=== PATIENT | female | born 1985 | race African-American/Black ===

== ENCOUNTER 2018-08-15 14:16 | Emergency (ER) | payer OTHER ==
[~2018-08-15] VITALS: Ht 170.2 cm; Wt 150.0 kg
[2018-08-15 16:13] LABS: CLARITY URINE CLEAR (CLEAR); COLOR URINE YELLOW (YELLOW); KETONES URINE NEGATIVE (NEGATIVE); LEUKOCYTE ESTERASE URINE NEGATIVE (NEGATIVE); NITRITE URINE NEGATIVE (NEGATIVE); OCCULT BLOOD URINE NEGATIVE (NEGATIVE); PROTEIN URINE NEGATIVE (NEGATIVE); SPECIFIC GRAVITY URINE 1.019 (1.005-1.030); UROBILINOGEN URINE 0.2 E.U./dL (0.2-1.0)
[2018-08-15 17:24] LABS: HCG SCREEN NEGATIVE
[2018-08-15 17:46] VITALS: BP 124/42
== END 2018-08-15 17:46 | disposition home or self-care (01) ==
LOC: ER 14:16
DX: Z32.02 Encounter for pregnancy test, result negative (principal)
CPT/HCPCS: 81025; 84703; 99283

== ENCOUNTER 2018-10-12 20:11 | Emergency (ER) | payer OTHER ==
[~2018-10-12] VITALS: Ht 170.2 cm; Wt 165.9 kg
[2018-10-12 23:10] LABS: BASOPHILS % 0.4 % (0.0-2.0); HEMATOCRIT. 34.6 % (36.0-48.0); HEMOGLOBIN. 11.5 g/dL (12.0-16.0); MEAN CORPUSCULAR VOLUME 86.8 fL (81.0-99.0); MEAN PLATELET VOLUME 6.6 fl (7.4-10.4); MONOCYTES % 3.7 % (2.0-8.0); NEUTROPHILS % 60.9 % (40.0-76.0); PLATELET 344 x1000/uL (130-400); RED BLOOD CELL COUNT 3.98 mill/uL (4.2-5.4)
[2018-10-12 23:11] LABS: CHLORIDE 109 mEq/L (98-107)
[2018-10-13 01:00] VITALS: BP 125/67
== END 2018-10-13 01:21 | disposition home or self-care (01) ==
LOC: ER 20:11
DX: R60.0 Localized edema (principal); M79.605 Pain in left leg; M79.604 Pain in right leg
CPT/HCPCS: 36415; 71045; 93970; 99284

== ENCOUNTER 2023-08-13 18:20 | Emergency (ER) | payer OTHER ==
[~2023-08-13] VITALS: Ht 167.6 cm; Wt 150.0 kg
[2023-08-13 18:24] VITALS: O2SAT 99
[2023-08-13] MEDS ORDERED: FUROSEMIDE 40MG/4ML VIAL IVP ONE (19:00)
[2023-08-13 20:14] LABS: BASOPHILS % 0.2 % (0.0-2.0); EOSINOPHILS % 2.4 % (0.0-5.0); HEMATOCRIT. 33.7 % (36.0-48.0); HEMOGLOBIN. 11.3 g/dL (12.0-16.0); LYMPHOCYTES % 27.1 % (20.0-50.0); MEAN CORPUSCULAR HEMOGLOBIN 27.9 pg (28.0-32.0); MEAN CORPUSCULAR HGB CONC 33.5 g/dL (31.0-37.0); MEAN CORPUSCULAR VOLUME 83.2 fL (81.0-99.0); MEAN PLATELET VOLUME 7.2 fl (7.4-10.4); MONOCYTES % 6.1 % (2.0-8.0); NEUTROPHILS % 64.2 % (40.0-76.0); PLATELET 306 x1000/uL (130-400); RED BLOOD CELL COUNT 4.05 mill/uL (4.2-5.4); RED CELL DISTRIBUTION WIDTH 14.2 % (11.6-14.6); WHITE BLOOD COUNT 6.4 x1000/uL (4.5-11.0)
[2023-08-13 20:27] LABS: D-DIMER 0.6 mg/L FEU (<0.50); INR 1.1; PARTIAL THROMBOPLASTIN TIME 26.4 sec (23.4-31.0); PROTHROMBIN TIME 11.8 sec (9.6-11.0)
[2023-08-13 20:28] LABS: HCG SCREEN NEGATIVE
[2023-08-13 20:29] LABS: CHLORIDE 104 mEq/L (98-107); POTASSIUM 3.8 mEq/L (3.5-5.1); SODIUM 140 mEq/L (136-145)
[2023-08-13 20:30] LABS: CALCIUM 9.2 mg/dL (8.7-10.4); CARBON DIOXIDE 26 mEq/L (21-32)
[2023-08-13 20:35] LABS: CREATININE 0.4 mg/dL (0.6-1.0); GLUCOSE 103 mg/dL (70-105); TROPONIN I HIGH SENSITIVITY 4 ng/L (3.0-34); UREA NITROGEN BLOOD 10 mg/dL (9-23)
[2023-08-13] MEDS: FUROSEMIDE 40MG/4ML VIAL IVP NR (21:00)
[2023-08-13 21:45] LABS: ALANINE AMINOTRANSFERASE 15 IU/L (10-49); ALBUMIN 3.3 g/dL (3.2-4.8); ASPARTATE AMINOTRANSFERASE 18 IU/L (<34); BILIRUBIN DIRECT 0.1 mg/dL (<=3.0); BILIRUBIN TOTAL 0.3 mg/dL (0.1-1.0); PROTEIN TOTAL 6.5 g/dL (6.0-8.3)
[2023-08-14] MEDS ORDERED: POTA-202 MT (00:41)
[2023-08-14] MEDS ORDERED: FURO-152 MT (00:41)
[2023-08-14 00:47] VITALS: BP 126/70; PULSE 90; RESP 22; TEMP 98
[2023-08-14] MEDS ORDERED: IOHEXOL-350 100 ML BOTTLE ONE (03:41)
== END 2023-08-14 01:20 | disposition home or self-care (01) ==
LOC: ER 18:20
DX: R60.0 Localized edema (principal); E03.9 Hypothyroidism, unspecified; E11.9 Type 2 diabetes mellitus without complications
CPT/HCPCS: 99285; 93970; 96374; 71275; 71045; 80076; 80048; 84703; 83880; 85025; 85379; 85610; 85730; 84484; 36415; 93005; J1940; Q9967

== ENCOUNTER 2024-05-10 14:58 | Emergency (ER) | payer OTHER ==
[~2024-05-10] VITALS: Ht 170.2 cm; Wt 161.0 kg
[~2024-05-10 14:58] MED LIST: FURO-152 MT; METH-372 MT; POTA-202 MT; PROP20TA19 MT
[2024-05-10 15:01] VITALS: TEMP 36.8; O2SAT 97
[2024-05-10] MEDS ORDERED: CLINDAMYCIN 600 MG in DEXTROSE 5% WATER 50 ML IV ONE (17:45)
[2024-05-10] MEDS: DEXAMETHASONE 4MG/ML 1ML VIAL IV ONE (18:11)
[2024-05-10 18:27] LABS: BASOPHILS % 0.3 % (0.0-2.0); EOSINOPHILS % 2.3 % (0.0-5.0); HEMATOCRIT. 38.1 % (36.0-48.0); HEMOGLOBIN. 12.5 g/dL (12.0-16.0); LYMPHOCYTES % 31.7 % (20.0-50.0); MEAN CORPUSCULAR HEMOGLOBIN 28.4 pg (28.0-32.0); MEAN CORPUSCULAR HGB CONC 32.9 g/dL (31.0-37.0); MEAN CORPUSCULAR VOLUME 86.2 fL (81.0-99.0); MONOCYTES % 5.7 % (2.0-8.0); PLATELET 352 x1000/uL (130-400); RED BLOOD CELL COUNT 4.42 mill/uL (4.2-5.4); RED CELL DISTRIBUTION WIDTH 15.8 % (11.6-14.6); WHITE BLOOD COUNT 10.9 x1000/uL (4.5-11.0)
[2024-05-10 19:00] LABS: HCG SCREEN NEGATIVE
[2024-05-10 19:01] LABS: CHLORIDE 105 mEq/L (98-107); POTASSIUM 3.6 mEq/L (3.5-5.1); SODIUM 138 mEq/L (136-145)
[2024-05-10 19:02] LABS: CARBON DIOXIDE 25 mEq/L (21-32)
[2024-05-10 19:03] LABS: CALCIUM 8.9 mg/dL (8.7-10.4)
[2024-05-10 19:07] LABS: CREATININE 0.8 mg/dL (0.6-1.0); GLUCOSE 117 mg/dL (70-105); UREA NITROGEN BLOOD 6 mg/dL (9-23)
[2024-05-10] MEDS: CLINDAMYCIN 600MG PREMIX 50 ML IV NR (19:09)
[2024-05-10] MEDS: ACETAMINOPHEN 1000MG/100ML 100 ML IV ONE (19:09)
[2024-05-10] MEDS ORDERED: CLIN-194 MT (21:11)
[2024-05-10] MEDS ORDERED: IBUP-2029 MT (21:11)
[2024-05-10] MEDS ORDERED: ACET-2708 MT (21:15)
[2024-05-10 22:22] VITALS: BP 126/72; PULSE 67; RESP 18; O2SAT 98
[2024-05-10] MEDS ORDERED: IOHEXOL-300 100 ML BOTTLE ONE (23:22)
== END 2024-05-10 22:23 | disposition home or self-care (01) ==
LOC: ER 14:58 → EDBEDREQ 17:54 → ER 22:23
DX: J02.9 Acute pharyngitis, unspecified (principal); E11.9 Type 2 diabetes mellitus without complications; I50.9 Heart failure, unspecified; Z79.01 Long term (current) use of anticoagulants; Z86.711 Personal history of pulmonary embolism; Z79.899 Other long term (current) drug therapy; Z86.718 Personal history of other venous thrombosis and embolism
CPT/HCPCS: 99285; 96365; 70491; 96375; 80048; 84703; 85025; 87040; 36415; 96368; Q9967; J1100; J3490; J7060; J0131